=== PATIENT | female | born 1980 | race African-American/Black ===

== ENCOUNTER 2021-06-28 19:29 | Inpatient (IN) | payer OTHER, SELFPAY ==
[2021-06-28] MEDS ORDERED: Albuterol Sulfate 2.5 mg/3 ml Neb NEB PRN (19:46)
[2021-06-28] MEDS ORDERED: Dextrose 5% in Water 1,000 ML IV PRN (19:49)
[2021-06-28] MEDS ORDERED: Dextrose 50% Abboject 50 ML SYRINGE SLOW IVP PRN (19:49)
[2021-06-28] MEDS ORDERED: Budesonide 0.5 MG/2 ML NEB NEB SCH (20:00)
[2021-06-28] MEDS ORDERED: Arformoterol 15 MCG/2 ML NEB NEB SCH (20:00)
[2021-06-28 20:38] VITALS: BMI 32.8
[2021-06-28] MEDS: NS 0.9% w/ 20 MEQ KCL 1,000 ML/1,000 ML BAG IV SCH (21:13)
[2021-06-28] MEDS: methylPREDNISolone Sod Succ 40 MG VIAL IVP SCH (21:14)
[2021-06-28] MEDS: Oseltamivir 75 MG CAP PO SCH (21:15)
[2021-06-28] MEDS: Guaifenesin DM 100-10/5 ML UDCUP PO PRN (21:16)
[2021-06-28] MEDS: Pantoprazole 40 MG VIAL IVP SCH (21:16)
[2021-06-28] MEDS ORDERED: FLU VACC QS2021-22(6MOS UP)/PF 60 MCG/0.5 ML SYRINGE IM ONE (22:30)
[2021-06-29] MEDS: methylPREDNISolone Sod Succ 40 MG VIAL IVP SCH ×4 (03:18→19:59)
[2021-06-29 04:56] LABS: Anion Gap 11 mmol/L (10-20); BUN (Urea Nitrogen) 9 mg/dL (7.0-18.7); Calc. Creatinine Clearance 153 mL/min (70-130); Calcium 8.8 mg/dL (7.8-10.44); Carbon Dioxide 25 mmol/L (22-29); Chloride 104 mmol/L (98-107); Glucose 125 mg/dL (70-105); Magnesium 2.5 mg/dL (1.6-2.6); Potassium 4.7 mmol/L (3.5-5.1); Sodium 135 mmol/L (136-145)
[2021-06-29 04:59] LABS: Actual Bicarbonate (HCO3a) 23.1 mEq/L (22-28); Base Excess (BEa) -2.8 mEq/L (-2.0 to +3.0); CO2 Tension 44.6 mmHg (35.0-45.0); Calcium, Ionized (arterial) 1.24 mmol/L (1.12-1.30); Carboxyhemoglobin (COHb) 0.3 gm% (0.0-3.0); Hemoglobin (Hb) 10.1 g/dL (12.0-16.0); O2 Tension (PaO2), arterial 108.2 mmHg (80.0-100.0); Potassium - ABG Lab 4.6 mmol/L (3.70-5.30); Puncture Site LRA; pH, Arterial 7.33 (7.35-7.45)
[2021-06-29 05:19] LABS: #Monocytes 0.7 10x3/uL (0.0-1.1); #Neutrophils 11.7 10x3/uL (1.5-8.4); %Basophils 0.1 % (0.0-2.0); %Lymphocytes 4.1 % (18.0-47.0); %Monocytes 5.2 % (0.0-10.0); %Neutrophils 90.2 % (40.0-75.0); Hemoglobin 9.2 g/dL (12.0-15.5); Mean Corpuscular HGB CONC 28.1 g/dL (32.0-36.0); Mean Corpuscular Hemoglobin 20.9 pg (27.0-33.0); Mean Corpuscular Volume 74.3 fl (81.6-98.3); Mean Platelet Volume 10.6 fl (7.4-10.4); Platelet Count 323 10x3/uL (150-450); RBC Distribution Width 20.7 % (11.5-14.5); White Blood Cell (WBC) Count 12.9 10x3/uL (3.5-10.5)
[2021-06-29] MEDS: Arformoterol 15 MCG/2 ML NEB NEB SCH ×2 (07:20→19:10)
[2021-06-29] MEDS: Budesonide 0.5 MG/2 ML NEB NEB SCH ×2 (07:21→19:10)
[2021-06-29] MEDS: Oseltamivir 75 MG CAP PO SCH ×2 (08:20→21:18)
[2021-06-29] MEDS: NS 0.9% w/ 20 MEQ KCL 1,000 ML/1,000 ML BAG IV SCH (08:24)
[2021-06-29] MEDS: Enoxaparin Sodium 40 MG/0.4 ML SYRINGE SC SCH (08:24)
[2021-06-29] MEDS: HumaLOG 300 UNITS/3 ML VIAL SC PRN ×2 (16:06→21:44)
[2021-06-29] MEDS: Acetaminophen 325 MG TAB PO PRN (19:59)
[2021-06-29] MEDS: Guaifenesin DM 100-10/5 ML UDCUP PO PRN (19:59)
[2021-06-29] MEDS: Montelukast Sodium 10 mg Tablet PO SCH (21:18)
[2021-06-29] MEDS: Pantoprazole 40 MG VIAL IVP SCH (21:18)
[2021-06-30] MEDS: methylPREDNISolone Sod Succ 40 MG VIAL IVP SCH ×4 (02:10→21:07)
[2021-06-30 03:55] LABS: Actual Bicarbonate (HCO3v) 26 mEq/L (22-28); Calcium, Ionized (venous) 1.18 mmol/L (1.16-1.32); Chloride (VBG) 102 mmol/L (98-106); Hemoglobin (Hb) 10.4 g/dL (11.7-15.5); Potassium (VBG) 4.48 mmol/L (3.70-5.30); Puncture Site Other Site; RapidComm Collect By CSUC.CNC; Sodium 137.2 mmol/L (133-146); pH (venous) 7.33 (7.32-7.43)
[2021-06-30] MEDS: Budesonide 0.5 MG/2 ML NEB NEB SCH ×2 (06:30→19:35)
[2021-06-30] MEDS: Guaifenesin DM 100-10/5 ML UDCUP PO PRN ×2 (06:31→21:06)
[2021-06-30] MEDS: Acetaminophen 325 MG TAB PO PRN (06:33)
[2021-06-30] MEDS: Arformoterol 15 MCG/2 ML NEB NEB SCH ×2 (06:40→19:35)
[2021-06-30] MEDS: HumaLOG 300 UNITS/3 ML VIAL SC PRN ×3 (08:09→21:12)
[2021-06-30] MEDS: Enoxaparin Sodium 40 MG/0.4 ML SYRINGE SC SCH (08:10)
[2021-06-30] MEDS: Oseltamivir 75 MG CAP PO SCH ×2 (08:11→21:07)
[2021-06-30] MEDS: Pantoprazole 40 MG VIAL IVP SCH (21:06)
[2021-06-30] MEDS: Montelukast Sodium 10 mg Tablet PO SCH (21:07)
[2021-07-01] MEDS: methylPREDNISolone Sod Succ 40 MG VIAL IVP SCH ×4 (02:47→22:15)
[2021-07-01] MEDS: Arformoterol 15 MCG/2 ML NEB NEB SCH ×2 (07:39→22:34)
[2021-07-01] MEDS: Budesonide 0.5 MG/2 ML NEB NEB SCH ×2 (07:43→22:34)
[2021-07-01] MEDS: Enoxaparin Sodium 40 MG/0.4 ML SYRINGE SC SCH (09:24)
[2021-07-01] MEDS: Oseltamivir 75 MG CAP PO SCH ×2 (10:40→22:14)
[2021-07-01] MEDS: HumaLOG 300 UNITS/3 ML VIAL SC PRN ×4 (13:06→22:25)
[2021-07-01] MEDS: Pantoprazole 40 MG VIAL IVP SCH (22:14)
[2021-07-01] MEDS: Montelukast Sodium 10 mg Tablet PO SCH (22:14)
[2021-07-01] MEDS: Guaifenesin DM 100-10/5 ML UDCUP PO PRN (22:15)
[2021-07-02] MEDS: Guaifenesin DM 100-10/5 ML UDCUP PO PRN ×2 (03:09→21:42)
[2021-07-02] MEDS: Arformoterol 15 MCG/2 ML NEB NEB SCH ×2 (07:20→19:50)
[2021-07-02] MEDS: Budesonide 0.5 MG/2 ML NEB NEB SCH ×2 (07:25→19:55)
[2021-07-02] MEDS: methylPREDNISolone Sod Succ 40 MG VIAL IVP SCH (09:08)
[2021-07-02] MEDS: Oseltamivir 75 MG CAP PO SCH ×2 (09:08→21:20)
[2021-07-02] MEDS: Enoxaparin Sodium 40 MG/0.4 ML SYRINGE SC SCH (09:08)
[2021-07-02] MEDS ORDERED: methylPREDNISolone Sod Succ 40 MG VIAL IVP SCH (21:00)
[2021-07-02] MEDS: Montelukast Sodium 10 mg Tablet PO SCH (21:19)
[2021-07-02] MEDS: Pantoprazole 40 MG VIAL IVP SCH (21:20)
[2021-07-02] MEDS: HumaLOG 300 UNITS/3 ML VIAL SC PRN (22:40)
[2021-07-03 04:14] LABS: #Monocytes 0.9 10x3/uL (0.0-1.1); #Neutrophils 15.7 10x3/uL (1.5-8.4); %Basophils 0.1 % (0.0-2.0); %Lymphocytes 7.4 % (18.0-47.0); %Monocytes 5.1 % (0.0-10.0); %Neutrophils 85.8 % (40.0-75.0); Hemoglobin 9.5 g/dL (12.0-15.5); Mean Corpuscular Hemoglobin 20.7 pg (27.0-33.0); Mean Corpuscular Volume 73.7 fl (81.6-98.3); Platelet Count 387 10x3/uL (150-450); RBC Distribution Width 21.1 % (11.5-14.5); White Blood Cell (WBC) Count 18.3 10x3/uL (3.5-10.5)
[2021-07-03 04:34] LABS: Anion Gap 14 mmol/L (10-20); BUN (Urea Nitrogen) 18 mg/dL (7.0-18.7); Calc. Creatinine Clearance 134 mL/min (70-130); Calcium 8.6 mg/dL (7.8-10.44); Carbon Dioxide 24 mmol/L (22-29); Chloride 102 mmol/L (98-107); Glucose 233 mg/dL (70-105); Potassium 4.3 mmol/L (3.5-5.1); Sodium 136 mmol/L (136-145)
[2021-07-03] MEDS: Arformoterol 15 MCG/2 ML NEB NEB SCH ×2 (07:20→20:05)
[2021-07-03] MEDS: Budesonide 0.5 MG/2 ML NEB NEB SCH ×2 (07:25→20:05)
[2021-07-03] MEDS: predniSONE 20 MG TAB PO SCH (09:11)
[2021-07-03] MEDS: Oseltamivir 75 MG CAP PO SCH (09:11)
[2021-07-03] MEDS: Enoxaparin Sodium 40 MG/0.4 ML SYRINGE SC SCH (09:11)
[2021-07-03] MEDS: HumaLOG 300 UNITS/3 ML VIAL SC PRN ×3 (13:30→23:48)
[2021-07-03] MEDS: Pantoprazole 40 MG VIAL IVP SCH (20:09)
[2021-07-03] MEDS: Acetaminophen 325 MG TAB PO PRN (20:09)
[2021-07-03] MEDS: Montelukast Sodium 10 mg Tablet PO SCH (20:11)
[2021-07-03] MEDS: Guaifenesin DM 100-10/5 ML UDCUP PO PRN (20:11)
[2021-07-04 05:56] LABS: #Monocytes 1.6 10x3/uL (0.0-1.1); #Neutrophils 12.8 10x3/uL (1.5-8.4); %Basophils 0.1 % (0.0-2.0); %Eosinophils 0.2 % (0.0-6.0); %Lymphocytes 20.6 % (18.0-47.0); %Monocytes 8.4 % (0.0-10.0); %Neutrophils 69.7 % (40.0-75.0); Hemoglobin 9.3 g/dL (12.0-15.5); Mean Corpuscular HGB CONC 27.9 g/dL (32.0-36.0); Mean Corpuscular Hemoglobin 20.3 pg (27.0-33.0); Mean Corpuscular Volume 72.5 fl (81.6-98.3); Mean Platelet Volume 9.8 fl (7.4-10.4); Platelet Count 375 10x3/uL (150-450); RBC Distribution Width 20.9 % (11.5-14.5); Red Blood Cell (RBC) Count 4.59 10x6/uL (3.90-5.03); White Blood Cell (WBC) Count 18.4 10x3/uL (3.5-10.5)
[2021-07-04 06:08] LABS: Anion Gap 12 mmol/L (10-20); BUN (Urea Nitrogen) 19 mg/dL (7.0-18.7); Calc. Creatinine Clearance 144 mL/min (70-130); Calcium 8.4 mg/dL (7.8-10.44); Carbon Dioxide 28 mmol/L (22-29); Chloride 102 mmol/L (98-107); Glucose 96 mg/dL (70-105); Potassium 3.8 mmol/L (3.5-5.1); Sodium 138 mmol/L (136-145)
[2021-07-04 06:20] LABS: Hypochromia SLIGHT = 6-15 cells (100X) (0-5/hpf); Stomatocytes SLIGHT = 2-5 cells (100X) (0-1/hpf)
[2021-07-04 06:21] LABS: Anisocytosis SLIGHT = 6-15 cells (100X) (0-5/hpf); Platelet Morphology Comment Appears Adequate; Polychromasia SLIGHT = 2-3 cells (100X) (0-2/hpf)
[2021-07-04] MEDS: Budesonide 0.5 MG/2 ML NEB NEB SCH (06:55)
[2021-07-04] MEDS: Arformoterol 15 MCG/2 ML NEB NEB SCH (07:30)
[2021-07-04] MEDS: Enoxaparin Sodium 40 MG/0.4 ML SYRINGE SC SCH (08:10)
[2021-07-04] MEDS: predniSONE 20 MG TAB PO SCH (08:10)
[2021-07-04 11:22] VITALS: BP 135/68; TEMP 97.4
[2021-07-04] MEDS: HumaLOG 300 UNITS/3 ML VIAL SC PRN (12:56)
== END 2021-07-04 15:14 | disposition home or self-care (01) | DRG 202 ==
LOC: CSHIMCU 19:29 → CSHTELE 07-01 18:48
PROVIDERS: ADMIT Family Medicine; ATTEND Emergency Medicine
PROC: 5A09357 Assistance with Respiratory Ventilation, Less than 24 Consecutive Hours, Continuous Positive Airway Pressure (ICD-10-PCS; principal; 2021-07-01)
DX: J45.902 Unspecified asthma with status asthmaticus (principal); E66.2 Morbid (severe) obesity with alveolar hypoventilation; J10.1 Influenza due to other identified influenza virus with other respiratory manifestations; J45.41 Moderate persistent asthma with (acute) exacerbation; F31.9 Bipolar disorder, unspecified; Z20.822 Contact with and (suspected) exposure to COVID-19; R00.0 Tachycardia, unspecified; R73.9 Hyperglycemia, unspecified; Z68.32 Body mass index [BMI] 32.0-32.9, adult; Z79.51 Long term (current) use of inhaled steroids; Z79.899 Other long term (current) drug therapy; Z87.891 Personal history of nicotine dependence
CPT/HCPCS: 36415; 36416; 36600; 71045; 80048; 82805; 83735; 84145; 85025; 93005; 93010; 94640; 94660; 94760; 94799; C9113; J1650; J1815; J2920; J3480; J7512; J7611; J7620; J7626

== ENCOUNTER 2023-04-30 09:45 | Outpatient (CLI) | payer BC | END 2023-04-30 09:46 | disposition home or self-care (01) | LOC: CSHWCC 09:45 | PROVIDERS: ATTEND Physician Assistant | DX: T81.32XD Disruption of internal operation (surgical) wound, not elsewhere classified, subsequent encounter (principal); E11.9 Type 2 diabetes mellitus without complications | CPT/HCPCS: 97605; 99213; G0463 ==

== ENCOUNTER 2023-05-03 15:24 | Outpatient (CLI) | payer BC | END 2023-05-03 15:25 | disposition home or self-care (01) | LOC: CSHWCC 15:24 | PROVIDERS: ATTEND Physician Assistant | DX: T81.32XD Disruption of internal operation (surgical) wound, not elsewhere classified, subsequent encounter (principal); E11.9 Type 2 diabetes mellitus without complications | CPT/HCPCS: 97605 ==

== ENCOUNTER 2023-05-07 13:16 | Outpatient (CLI) | payer BC | END 2023-05-07 13:17 | disposition home or self-care (01) | LOC: CSHWCC 13:16 | PROVIDERS: ATTEND Physician Assistant | DX: T81.32XA Disruption of internal operation (surgical) wound, not elsewhere classified, initial encounter (principal); E11.9 Type 2 diabetes mellitus without complications | CPT/HCPCS: 97605 ==

== ENCOUNTER 2023-06-05 09:02 | Outpatient (CLI) | payer BC | END 2023-06-05 09:03 | disposition home or self-care (01) | LOC: CSHWCC 09:02 | PROVIDERS: ATTEND Physician Assistant | DX: T81.32XD Disruption of internal operation (surgical) wound, not elsewhere classified, subsequent encounter (principal); E11.9 Type 2 diabetes mellitus without complications | CPT/HCPCS: 97607; 99213; G0463 ==

== ENCOUNTER 2025-02-17 08:54 | Day surgery (SDC) | payer BC ==
[2025-02-13 13:32] VITALS: BMI 26.2
[2025-02-17] MEDS ORDERED: PROPOFOL 40 ML ONE (11:44)
[2025-02-17] MEDS ORDERED: PHENYLEPHRINE-NS 100 MCG/ML 10 ML SYRINGE ONE (11:47)
== END 2025-02-17 12:40 | disposition home or self-care (01) ==
LOC: CSHSDC 08:54
PROVIDERS: ATTEND Surgery
PROC: 0DJD8ZZ Inspection of Lower Intestinal Tract, Via Natural or Artificial Opening Endoscopic (ICD-10-PCS; principal; 2025-02-17)
DX: K57.30 Diverticulosis of large intestine without perforation or abscess without bleeding (principal); I10 Essential (primary) hypertension; J45.909 Unspecified asthma, uncomplicated; Z79.899 Other long term (current) drug therapy
CPT/HCPCS: J2704

== ENCOUNTER 2025-05-26 12:31 | Outpatient (CLI) | payer BC | END 2025-05-26 12:32 | disposition home or self-care (01) | LOC: CSHRAD 12:31 | PROVIDERS: ATTEND Surgery | DX: Z93.2 Ileostomy status (principal); K57.20 Diverticulitis of large intestine with perforation and abscess without bleeding | CPT/HCPCS: 74280 ==